=== PATIENT | male | born 1980 ===

== ENCOUNTER 2020-04-25 08:27 | Emergency (ER) | payer OTHER ==
[~2020-04-25] VITALS: Ht 167.6 cm; Wt 97.5 kg
[2020-04-25] MEDS ORDERED: Norco 5-325 Ta1 EACH PO (10:44)
[2020-04-25] MEDS ORDERED: Keflex500 MG PO (10:44)
== END 2020-04-25 11:22 | disposition home or self-care (01) ==
LOC: ER 08:27
DX: S52.352A Displaced comminuted fracture of shaft of radius, left arm, initial encounter for closed fracture (principal); S61.522A Laceration with foreign body of left wrist, initial encounter; W31.2XXA Contact with powered woodworking and forming machines, initial encounter; Y92.69 Other specified industrial and construction area as the place of occurrence of the external cause; Y99.0 Civilian activity done for income or pay
CPT/HCPCS: 12034; 73080; 73090; 90471; 90714; 96365-59; 96375-59; 99283-25; J0690; J1170; J2405; J3010